=== PATIENT | male | born 1945 | race Asian ===

== ENCOUNTER 2020-09-14 06:18 | Emergency (ER) | payer MEDICARE, MEDICAID ==
[~2020-09-14] VITALS: Ht 165.1 cm; Wt 59.0 kg
[2020-09-14 06:52] LABS: Urine Bacteria NONE SEEN /hpf (None Seen); Urine Blood 1+ /uL (Negative); Urine Specific Gravity 1.011 (1.001-1.035); Urine WBC 3 /hpf (0 - 3)
[2020-09-14] MEDS ORDERED: LIDOCAINE 2% JELLY 11ml (GLYDO) ONE (07:32)
[2020-09-14] MEDS ORDERED: LIDOCAINE 2% JELLY 11ml (GLYDO) UR ONE (08:00)
[2020-09-14] MEDS ORDERED: cefTRIAXone SOD 1,000 MG VL IM ONE (08:00)
[2020-09-14] MEDS ORDERED: LIDOCAINE 1% HCL (LOCAL ANESTH.) INJ 20ML MDV ONE (08:06)
[2020-09-14 08:52] VITALS: BP 135/81
[2020-09-14] MEDS ORDERED: LIDOCAINE 1% HCL (LOCAL ANESTH.) INJ 20ML MDV ID ONE (09:30)
== END 2020-09-14 11:08 | disposition home or self-care (01) ==
LOC: ER 06:18
DX: R33.9 Retention of urine, unspecified (principal)
CPT/HCPCS: 51702; 76856; 76942; 81001; 99285; J0696; J2001